=== PATIENT | male | born 1980 | race Caucasian/White ===

== ENCOUNTER 2021-09-22 10:42 | Emergency (ER) | payer OTHER ==
[2021-09-22 11:28] VITALS: BP 142/96
--- NOTE | 2021-09-22 11:44 | ED Physician Documentation ---
PD HPI URI - Stated complaint Stated Complaint: C+,BODY ACHES & CHILLS,HEADACHE - Chief complaint Chief Complaint: General - History obtained from History obtained from: Patient - History of Present Illness Timing - onset: How many days ago (2) Timing duration: Days (2) Timing details: Abrupt onset, Still present (wishing MAB therapy.) Associated symptoms: Fever, Chills, Nasal congestion, Swollen nodes, Dry cough Contributing factors: Sick contact (family member recent COVID, and had gotten MAB therapy with good improvement. He did home rapid Ag test that was positive.) Similar symptoms before: Has not had sx before Recently seen: Not recently seen Review of Systems Constitutional: reports: Fever, Chills, Myalgias Nose: reports: Congestion Respiratory: reports: Cough. denies: Wheezing GI: reports: Nausea. denies: Vomiting, Diarrhea PD PAST MEDICAL HISTORY - Past Medical History Cardiovascular: None Respiratory: None Endocrine/Autoimmune: None - Present Medications Home Medications: Ambulatory Orders Medication Instructions Recorded Confirmed Benzonatate [Tessalon] 100 mg PO TID PRN #20 cap 09/22/21 HYDROcod/ACETAM 5/325 [[place] 5/325] 1 ea PO Q6H PRN #14 tablet 09/22/21 dexAMETHasone [Decadron] 4 mg PO DAILY #7 tablet 09/22/21 - Allergies Allergies/Adverse Reactions: Allergies Allergy/AdvReac Type Severity Reaction Status Date / Time No Known Drug Allergies Allergy Verified 09/22/21 11:19 PD ED PE NORMAL - Vitals Vital signs reviewed: Yes - General General: Alert and oriented X 3, Well developed/nourished, Other (Patient seen outside ER ambulance entrance to expedite since no ER beds open. Patient is okay with that. ) - Respiratory Respiratory: No respiratory distress - Derm Derm: Normal color, Warm and dry - Neuro Neuro: Alert and oriented X 3, Normal speech Results - Vitals Vitals: Oxygen O2 Source Room air - Labs Labs: Laboratory Tests 09/22/21 11:10 Coronavirus (PCR) POSITIVE PD MEDICAL DECISION MAKING - ED course Complexity details: considered differential (COVID, but had home test and need verifiable result for MAB. He is understanding of that. He asks for med for cough and aches. ), d/w patient ED course: patient to return when test results. Did Reference test rather than [facility] since ER full and would be difficult to do MAB today anyway. Departure - Departure Disposition: 01 Home, Self Care Clinical Impression: COVID-19 Upper respiratory infection Qualifiers: URI type: unspecified URI Qualified Code(s): J06.9 - Acute upper respiratory infection, unspecified Condition: Stable Record reviewed to determine appropriate education?: Yes Prescriptions: dexAMETHasone [Decadron] 4 mg PO DAILY #7 tablet HYDROcod/ACETAM 5/325 [[place] 5/325] 1 ea PO Q6H PRN #14 tablet PRN Reason: Pain Benzonatate [Tessalon] 100 mg PO TID PRN #20 cap PRN Reason: Cough Comments: Treated. Tylenol or ibuprofen if needed for mild pains and add hydrocodone if needed for worse pains and aches. Decadron steroid anti-inflammatory should help with lot of the symptoms to improve them a bit. Add Tessalon if needed for cough. Your Covid test should result the next day or 2. Assuming positive, you can then call ahead to us to ensure we have monoclonal antibody in stock and then come to the ER between 7 AM and 5 PM for the infusion. I transmitted your prescriptions to [facility] in [place]. You have a Covid test pending. You need to self quarantine until the result is done and negative. Do not leave your house. Do not get near anybody. The results should be done in 48 to 72 hours, but sometimes longer. We will call with a positive result, the fastest way to get a negative result for confirmation though is to go to the hospital website at [email or web address], click on the my [facility] tab and sign up for the patient portal. If any friends or family get sick and would like to have a Covid test done, but do not have signs or symptoms that would necessitate being hospitalized, we encourage testing throughone of the local pharmacies or the Health Department. Call them to schedule an appointment. I am prescribing a short course of narcotic pain medication for you. These are potentially dangerous and addictive medications that should be used carefully. These medications may constipate you. Take an [id number] stool softener such as docusate twice daily with plenty of water while taking these medications. If you go 24 hours without a bowel movement, take adna-[id number] MiraLAX, per package instructions. Do not drink or drive while taking these medications. If you received narcotic or sedating medications while in the emergency department do not drive for 24 hours. Store this medication in a safe, secure place and out of reach of children. It is a violation of federal law to give or sell this medication to another person or to use in a manner other than prescribed. The ED will not refill narcotic prescriptions, including prescriptions lost or stolen. You can dispose of unwanted medications at the [facility]'s office or at several pharmacies such as [facility]. Discharge Date/Time: 09/22/21 12:20
== END 2021-09-22 12:20 | disposition home or self-care (01) ==
LOC: ED 10:42
DX: U07.1 COVID-19 (principal)
CPT/HCPCS: 99283

== ENCOUNTER 2021-09-24 08:06 | Emergency (ER) | payer OTHER ==
--- NOTE | 2021-09-24 13:56 | ED Physician Documentation ---
History of Present Illness - Stated complaint Stated Complaint: C+, FEVER, BODY ACHE, LOSS OF APPITTE - Chief complaint Chief Complaint: General - Additonal information Additional information: 40-year-old male who is morbidly obese presents the emergency department requesting monoclonal antibodies in the setting of active COVID-19 infection. He began having cough congestion fevers chills and myalgias about 5 days ago. He was seen in this ER on 22 September and tested positive for COVID-19. His son receive monoclonal antibodies last week and he is requesting them to day. He has not yet vaccinated for COVID-19. Denies tobacco or alcohol use. Rare cannabis/edible use. He has a modest blood pressure elevation here in the ER but denies any previous history of hypertension. Denies chest pain or shortness of air. Review of Systems Constitutional: reports: Fever, Chills, Myalgias, Fatigue Eyes: reports: Reviewed and negative Ears: reports: Reviewed and negative Nose: reports: Congestion Throat: reports: Reviewed and negative Cardiac: reports: Reviewed and negative Respiratory: reports: Cough. denies: Dyspnea, Hemoptysis, Wheezing GI: reports: Reviewed and negative : reports: Reviewed and negative PD PAST MEDICAL HISTORY - Present Medications Home Medications: Ambulatory Orders Medication Instructions Recorded Confirmed Benzonatate [Tessalon] 100 mg PO TID PRN #20 cap 09/22/21 HYDROcod/ACETAM 5/325 [[place] 5/325] 1 ea PO Q6H PRN #14 tablet 09/22/21 dexAMETHasone [Decadron] 4 mg PO DAILY #7 tablet 09/22/21 Amox/Clav 875/125 [Augmentin] 1 each PO Q12H #20 tablet 09/24/21 Azithromycin [Zithromax] 0 mg PO DAILY #6 tablet 09/24/21 - Allergies Allergies/Adverse Reactions: Allergies Allergy/AdvReac Type Severity Reaction Status Date / Time No Known Drug Allergies Allergy Verified 09/24/21 11:30 - Social History Does the pt smoke?: No Smoking Status: Never smoker PD ED PE NORMAL - General General: Alert and oriented X 3, No acute distress, Other (Morbidly obese) - HEENT HEENT: PERRL, Moist mucous membranes - Neck Neck: Supple, no meningeal sign, No adenopathy - Cardiac Cardiac: RRR, No murmur, No gallop, Strong equal pulses - Respiratory Respiratory: No respiratory distress, Clear bilaterally - Abdomen Abdomen: Normal bowel sounds, Soft, Non tender - Back Back: No CVA TTP, No spinal TTP - Derm Derm: Normal color, Warm and dry, No rash - Extremities Extremities: No deformity - Neuro Neuro: Alert and oriented X 3 Eye Opening: Spontaneous Motor: Obeys Commands Verbal: Oriented GCS Score: 15 Results - Vitals Vitals: Vital Signs - 24 hr 09/24/21 09/24/21 09/24/21 11:30 13:45 15:52 Temperature 37.7 C 38.2 C H Heart Rate 77 80 77 Respiratory 19 18 16 Rate Blood Pressure 141/101 H 145/100 H 132/106 H O2 Saturation 96 94 98 Oxygen O2 Source Room air - Rads (name of study) CXR Radiology: Final report received (Diffuse interstitial prominence) PD MEDICAL DECISION MAKING - ED course Complexity details: reviewed old records, reviewed results, re-evaluated patient, considered differential, d/w patient ED course: 40-year-old male who carries a history of morbid obesity but denies history of hypertension diabetes or tobacco use presents the emergency department requesting monoclonal antibodies in the setting of active COVID-19 infection. Symptoms began about 5 days ago and his tests result was positive from 22 September. Cardiopulmonary auscultation is fairly unremarkable. No hypoxia on room air. He is unlabored. Chest x-ray suggest diffuse bilateral interstitial prominence. Recommendation is for a CT scan and follow-up to evaluate for focal infiltrates but given that this gentleman has active COVID-19 infection will defer advanced imaging at this time. But given active COVID-19 infection will treat empirically with Augmentin and azithromycin. MAB therapy for this patient with Covid was considered and discussed with the patient. The patient was provided the handout: ``Casirivimab plus Imdevimab Fact Sheet for Patients, Parents and Caregivers, and the information within was discussed with the patient. The patient was informed of alternatives prior to receiving Mab therapy. The patient was informed that these medications are unapproved drugs that are authorized for use under Emergency Use Authorization by the FDA. The patient will be monitored for at least 1 hour after infusion is complete Departure - Departure Disposition: 01 Home, Self Care Clinical Impression: COVID-19 virus infection Condition: Stable Record reviewed to determine appropriate education?: Yes Prescriptions: Amox/Clav 875/125 [Augmentin] 1 each PO Q12H #20 tablet Azithromycin [Zithromax] 0 mg PO DAILY #6 tablet Comments: Jhony you are seen today in the emergency department to receive monoclonal anti body therapy in the setting of COVID-19 infection. You did receive these antibodies. Here in the emergency department you have had normal oxygen levels. Your lungs generally sound clear when we listen to them In general we do recommend those that have COVID-19 infection to sleep on their stomach if they can tolerate it. This does help improve aeration in the posterior lung conde. The chest x-ray suggests a possible pneumonia, but it is not certain. A CT scan would tell us for certain. However with your COVID-19 infection we prefer not to send you to the CT scanner as it would require it to be down for a number of hours, to be properly cleaned. I do recommend that you fill the prescription for the antibiotics. They have been sent electronically to the [facility] in [place]. If at any point despite the antibiotics and this antibody infusion you find that you are having increasing shortness of air, oxygen levels less than 92%, chest pain or fainting episodes and please return immediately to the ER for second evaluation.
--- NOTE | 2021-09-24 14:26 | XRAY Report ---
PROCEDURE: Chest 1 View X-Ray INDICATIONS: chest pain TECHNIQUE: One view of the chest was acquired. COMPARISON: None FINDINGS: Surgical changes and devices: None. Lungs and pleura: No pleural effusions or pneumothorax. Diffuse interstitial prominence. Mediastinum: Mediastinal contours appear normal. Heart size is normal. Bones and chest wall: No suspicious bony lesions. Overlying soft tissues appear unremarkable. IMPRESSION: Diffuse interstitial prominence. Comment: Chest CT may be helpful for better evaluation of possible pulmonary infiltrates. Reviewed by: Dipak Steinberg MD on 09/24/2021 2:25 PM PST Approved by: Dipak Steinberg MD on 09/24/2021 2:25 PM PST Station ID: [id number]
[2021-09-24] MEDS ORDERED: CASIRIVIMAB/IMDEVIMAB 10 ML in SODIUM CHLORIDE 0.9% 50 ML IV ONE (14:45)
[2021-09-24 15:53] VITALS: BP 132/106
== END 2021-09-24 16:09 | disposition home or self-care (01) ==
LOC: ED 08:06
DX: U07.1 COVID-19 (principal); E66.01 Morbid (severe) obesity due to excess calories; Z68.41 Body mass index [BMI] 40.0-44.9, adult; R03.0 Elevated blood-pressure reading, without diagnosis of hypertension
CPT/HCPCS: 71045; 99282; 99284; J7040; M0243; Q0244

== ENCOUNTER 2022-09-03 07:51 | Outpatient (CLI) | payer OTHER ==
--- NOTE | 2022-09-03 14:38 | Ultrasound Report ---
PROCEDURE: Chest INDICATIONS: MASS OF CHEST WALL TECHNIQUE: Real-time scanning was performed, and a suitable site was marked by the torch heater for thoracentesis to be performed by the referring clinician. COMPARISON: None. FINDINGS: Sonographic images at the area of palpable concern in the left back and left hemiabdomen demonstrate isoechoic two foci of relative increased echogenicity. Both are well-circumscribed without increased vascularity. The abdominal focus measures 31 x 24 x 53 mm. The dorsal focus measuring 13 x 9 x 19 mm. Both are within the subcutaneous fat. IMPRESSION: Relative echogenic foci as above most suggestive of lipomas. Reviewed by: Dyan Valiente MD on 09/03/2022 2:37 PM PST Approved by: Dyan Valienet MD on 09/03/2022 2:37 PM [facility] Station ID: [id number]
== END 2022-09-03 07:52 | disposition home or self-care (01) ==
LOC: DI 07:51
PROVIDERS: ATTEND Physician Assistant
DX: R22.2 Localized swelling, mass and lump, trunk (principal); N52.9 Male erectile dysfunction, unspecified; R39.11 Hesitancy of micturition; Z13.9 Encounter for screening, unspecified; E66.9 Obesity, unspecified; Z13.220 Encounter for screening for lipoid disorders; Z13.29 Encounter for screening for other suspected endocrine disorder
CPT/HCPCS: 36415; 80053; 80061; 83036; 83721; 84153; 84403; 84443; 85025

== ENCOUNTER 2022-09-03 09:49 | Outpatient (CLI) | payer OTHER ==
[2022-09-03 12:15] LABS: BASOPHILS % (AUTO) 0.5 %; EOSINOPHILS # (AUTO) 0.2 10^3/uL (0.0-0.7); EOSINOPHILS % (AUTO) 3.6 %; HGB - HEMOGLOBIN 16.7 g/dL (14.0-18.0); LYMPHOCYTES # (AUTO) 1.6 10^3/uL (1.5-3.5); LYMPHOCYTES % (AUTO) 25.5 %; MEAN CORPUSCULAR HEMOGLOBIN 28.9 pg (27.0-31.0); MEAN CORPUSCULAR HGB CONC 32.7 g/dL (32.0-36.0); MEAN CORPUSCULAR VOLUME 88.4 fL (80.0-94.0); MEAN PLATELET VOLUME 10.6 fL (7.4-11.4); MONOCYTES # (AUTO) 0.6 10^3/uL (0.0-1.0); MONOCYTES % (AUTO) 9.2 %; NEUTROPHILS # (AUTO) 3.7 10^3/uL (1.5-6.6); NEUTROPHILS % (AUTO) 60.9 %; PLT - PLATELET COUNT 249 10^3/uL (130-450); RED BLOOD COUNT 5.77 10^6/uL (4.70-6.10); RED CELL DISTRIBUTION WIDTH 11.9 % (12.0-15.0); WHITE BLOOD COUNT 6.1 x10^3/uL (4.8-10.8)
[2022-09-03 12:41] LABS: ESTIMATED AVERAGE GLUCOSE 120 mg/dL (70-100); HEMOGLOBIN A1c% 5.8 % (4.27-6.07)
[2022-09-03 13:04] LABS: ALBUMIN 4.7 g/dL (3.2-5.5); ALBUMIN/GLOBULIN RATIO 1.5 (1.0-2.2); ALKALINE PHOSPHATASE 90 IU/L (42-121); ALT ALANINE AMINOTRANSFERASE 97 IU/L (10-60); AST ASPARTATE AMINOTRANSFERASE 46 IU/L (10-42); BILIRUBIN,TOTAL 0.9 mg/dL (0.2-1.0); BUN - BLOOD UREA NITROGEN 22 mg/dL (6-20); CALCIUM 9.8 mg/dL (8.5-10.3); CARBON DIOXIDE - CO2 28 mmol/L (21-32); CHLORIDE 99 mmol/L (101-111); CHOL/HDL RATIO 3.4 (<5.0); CHOLESTEROL 232 mg/dL; CREATININE 0.9 mg/dL (0.6-1.2); GFR - MDRD 93 (>89); GLUCOSE 106 mg/dL (70-100); HDL CHOLESTEROL 69 mg/dL; LDL CHOLESTEROL,CALCULATED 145 mg/dL; LDL/HDL RATIO 2.1 (<3.6); POTASSIUM 4.8 mmol/L (3.5-5.0); SODIUM 138 mmol/L (135-145); TOTAL PROTEIN 7.8 g/dL (6.7-8.2); TRIGLYCERIDES 90 mg/dL; VLDL CHOLESTEROL 18 mg/dL
[2022-09-03 13:07] LABS: PSA TOTAL 0.595 ng/mL (0.000-2.000)
[2022-09-03 13:41] LABS: THYROID STIMULATING HORMONE 2.57 uIU/mL (0.34-5.60)
== END 2022-09-03 09:50 | disposition home or self-care (01) ==
LOC: LAB.N 09:49
PROVIDERS: ATTEND Physician Assistant
DX: N52.9 Male erectile dysfunction, unspecified (principal); R39.11 Hesitancy of micturition; Z13.9 Encounter for screening, unspecified; E66.9 Obesity, unspecified; Z13.220 Encounter for screening for lipoid disorders; Z13.29 Encounter for screening for other suspected endocrine disorder
CPT/HCPCS: 36415; 80053; 80061; 83036; 83721; 84153; 84403; 84443; 85025

== ENCOUNTER 2022-10-22 15:09 | Outpatient (CLI) | payer OTHER ==
[2022-10-22 18:26] LABS: ALBUMIN 4.7 g/dL (3.2-5.5); ALBUMIN/GLOBULIN RATIO 1.5 (1.0-2.2); BILIRUBIN,TOTAL 1.1 mg/dL (0.2-1.0); CALCIUM 9.5 mg/dL (8.5-10.3); POTASSIUM 3.8 mmol/L (3.5-5.0); TOTAL PROTEIN 7.9 g/dL (6.7-8.2)
[2022-10-22 18:59] LABS: FOLLICLE STIMULATING HORMONE 4.36 mIU/mL
[2022-10-22 19:00] LABS: LUTEINIZING HORMONE 6.48 mIU/mL
[2022-10-23 05:10] LABS: HBsAG SCREEN Negative (Negative); HCV AB <0.1 s/co ratio (0.0-0.9); HEPATITIS B SURFACE AB QUANT 7.5 mIU/mL (Immunity>9.9)
== END 2022-10-22 15:10 | disposition home or self-care (01) ==
LOC: LAB.N 15:09
PROVIDERS: ATTEND Physician Assistant
DX: E29.1 Testicular hypofunction (principal); R79.89 Other specified abnormal findings of blood chemistry
CPT/HCPCS: 36415; 80053; 83001; 83002; 84403; 86317; 86704; 86709; 86803; 87340

== ENCOUNTER 2022-10-27 08:57 | Outpatient (CLI) | payer OTHER ==
[2022-10-29 16:08] LABS: FREE TESTOSTERONE(DIRECT) 9.5 pg/mL (6.8-21.5)
== END 2022-10-27 08:58 | disposition home or self-care (01) ==
LOC: LAB.N 08:57
PROVIDERS: ATTEND Physician Assistant
DX: E29.1 Testicular hypofunction (principal)
CPT/HCPCS: 36415; 84402; 84403

== ENCOUNTER 2022-11-10 07:54 | Outpatient (CLI) | payer OTHER ==
[2022-11-10 09:17] LABS: BASOPHILS % (AUTO) 0.3 %; EOSINOPHILS # (AUTO) 0.1 10^3/uL (0.0-0.7); EOSINOPHILS % (AUTO) 1.5 %; HCT - HEMATOCRIT 47.7 % (42.0-52.0); HGB - HEMOGLOBIN 15.6 g/dL (14.0-18.0); LYMPHOCYTES # (AUTO) 1.6 10^3/uL (1.5-3.5); LYMPHOCYTES % (AUTO) 23.7 %; MEAN CORPUSCULAR HEMOGLOBIN 28.9 pg (27.0-31.0); MEAN CORPUSCULAR HGB CONC 32.7 g/dL (32.0-36.0); MEAN CORPUSCULAR VOLUME 88.5 fL (80.0-94.0); MEAN PLATELET VOLUME 9.9 fL (7.4-11.4); MONOCYTES # (AUTO) 0.5 10^3/uL (0.0-1.0); MONOCYTES % (AUTO) 7.6 %; NEUTROPHILS # (AUTO) 4.4 10^3/uL (1.5-6.6); NEUTROPHILS % (AUTO) 66.7 %; PLT - PLATELET COUNT 213 10^3/uL (130-450); RED BLOOD COUNT 5.39 10^6/uL (4.70-6.10); WHITE BLOOD COUNT 6.6 x10^3/uL (4.8-10.8)
[2022-11-10 09:23] LABS: INR 1.1 (0.8-1.2); PT - PROTHROMBIN TIME 12.2 secs (9.9-12.6)
[2022-11-10 09:29] LABS: ALBUMIN 4.2 g/dL (3.2-5.5); ALBUMIN/GLOBULIN RATIO 1.4 (1.0-2.2); BILIRUBIN,TOTAL 0.9 mg/dL (0.2-1.0); CALCIUM 9.4 mg/dL (8.5-10.3); CREATININE 0.8 mg/dL (0.6-1.2); POTASSIUM 4.3 mmol/L (3.5-5.0); TOTAL PROTEIN 7.2 g/dL (6.7-8.2)
[2022-11-10 09:30] LABS: PARTIAL THROMBOPLASTIN TIME 33.5 secs (24.9-33.3)
--- NOTE | 2022-11-10 16:44 | Ultrasound Report ---
PROCEDURE: Abdomen Complete INDICATIONS: ELEVATED LIVER ENZYMES TECHNIQUE: Real-time scanning was performed of the abdominal and retroperitoneal organs, with image documentatio n. COMPARISON: None. FINDINGS: Examination is limited by body habitus and bowel gas. Liver: Liver is normal in size and homogeneously increased in echotexture. Gallbladder: Gallbladder is within normal limits. Biliary ducts: Intrahepatic bile ducts are non-dilated. Extrahepatic bile duct caliber measures 6.7 mm. Normal is 6-7 mm or less in diameter, or 10 mm or less post-cholecystectomy. Pancreas: Not well seen but within normal limits as visualized. Spleen: Spleen is normal in size and homogeneous in echotexture. Kidneys: Kidneys are normal in size and echotexture. Right kidney measures 11.8 cm long; left kidne y measures 12.7 cm long. No hydronephrosis or nephrolithiasis. No solid masses. Aorta: Visualized aorta is normal in caliber at less than 3 cm. Iliacs: Proximal common iliac arteries are normal in caliber at less than 2.5 cm. IVC: Intrahepatic inferior vena cava is patent. Miscellaneous: No free abdominal fluid. IMPRESSION: 1. Hepatic steatosis. 2. No acute process. Reviewed by: Danita Del Toro MD on 11/10/2022 4:43 PM PST Approved by: Danita Del Toro MD on 11/10/2022 4:43 PM PST Station ID: [id number]
== END 2022-11-10 07:55 | disposition home or self-care (01) ==
LOC: DI 07:54
PROVIDERS: ATTEND Physician Assistant
DX: K76.0 Fatty (change of) liver, not elsewhere classified (principal)
CPT/HCPCS: 36415; 80053; 82977; 83615; 85025; 85610; 85730

== ENCOUNTER 2023-12-30 11:35 | Outpatient (CLI) | payer OTHER ==
[2023-12-30 17:45] LABS: BASOPHILS % (AUTO) 0.6 %; EOSINOPHILS # (AUTO) 0.3 10^3/uL (0.0-0.7); EOSINOPHILS % (AUTO) 4.1 %; HCT - HEMATOCRIT 47.7 % (42.0-52.0); HGB - HEMOGLOBIN 15.2 g/dL (14.0-18.0); LYMPHOCYTES # (AUTO) 1.6 10^3/uL (1.5-3.5); LYMPHOCYTES % (AUTO) 25.2 %; MEAN CORPUSCULAR HEMOGLOBIN 28.7 pg (27.0-31.0); MEAN CORPUSCULAR HGB CONC 31.9 g/dL (32.0-36.0); MEAN CORPUSCULAR VOLUME 90.2 fL (80.0-94.0); MEAN PLATELET VOLUME 11.1 fL (7.4-11.4); MONOCYTES # (AUTO) 0.6 10^3/uL (0.0-1.0); NEUTROPHILS # (AUTO) 3.8 10^3/uL (1.5-6.6); NEUTROPHILS % (AUTO) 60.9 %; PLT - PLATELET COUNT 228 10^3/uL (130-450); RED BLOOD COUNT 5.29 10^6/uL (4.70-6.10); RED CELL DISTRIBUTION WIDTH 12.6 % (12.0-15.0); WHITE BLOOD COUNT 6.3 x10^3/uL (4.8-10.8)
[2023-12-30 17:57] LABS: ALBUMIN 4.7 g/dL (3.2-5.5); ALBUMIN/GLOBULIN RATIO 2.1 (1.0-2.2); ALKALINE PHOSPHATASE 72 IU/L (42-121); ALT ALANINE AMINOTRANSFERASE 18 IU/L (10-60); AST ASPARTATE AMINOTRANSFERASE 21 IU/L (10-42); BILIRUBIN,TOTAL 0.8 mg/dL (0.2-1.0); BUN - BLOOD UREA NITROGEN 26 mg/dL (6-20); CALCIUM 9.7 mg/dL (8.5-10.3); CARBON DIOXIDE - CO2 29 mmol/L (21-32); CHLORIDE 102 mmol/L (101-111); CHOLESTEROL 186 mg/dL; GFR - MDRD 82 (>89); GLUCOSE 102 mg/dL (74-104); HDL CHOLESTEROL 62 mg/dL; LDL CHOLESTEROL,CALCULATED 114 mg/dL; LDL/HDL RATIO 1.8 (<3.6); POTASSIUM 4.6 mmol/L (3.5-4.5); SODIUM 136 mmol/L (135-145); TOTAL PROTEIN 6.9 g/dL (6.4-8.9); TRIGLYCERIDES 49 mg/dL (48-352); VLDL CHOLESTEROL 10 mg/dL
[2023-12-30 18:11] LABS: THYROID STIMULATING HORMONE 1.71 uIU/mL (0.34-5.60)
== END 2023-12-30 11:36 | disposition home or self-care (01) ==
LOC: LAB.N 11:35
PROVIDERS: ATTEND Physician Assistant
DX: Z13.9 Encounter for screening, unspecified (principal)
CPT/HCPCS: 36415; 80053; 80061; 83721; 84443; 85025